=== PATIENT | male | born 1965 | race American Indian/Alaskan Native ===

== ENCOUNTER 2020-02-28 14:00 | Outpatient (CLI) | payer OTHER ==
--- NOTE | 2020-02-28 14:59 | Ultrasound Report ---
LEFT DIGITAL DIAGNOSTIC MAMMOGRAM WITH CAD 02/28/2020 LEFT LIMITED BREAST ULTRASOUND INDICATION: PALPABLE MASS LT BREAST TECHNIQUE: Digital left mammographic imaging was performed. Spot compression views were obtained. Li mited ultrasound was performed. This examination was interpreted with the benefit of Computer-Aided D etection (CAD) analysis. COMPARISON: Baseline. FINDINGS: Breast Density: There are scattered areas of fibroglandular density. MAMMOGRAPHIC FINDINGS: There is mild/moderate localized asymmetric breast tissue in the left subareol ar region the site of the palpable abnormality. There is no evidence of dominant mass, suspicious ruiz cifications or architectural distortion in the left breast. ULTRASOUND FINDINGS: Targeted ultrasound evaluation was performed of the area of interest. There is mild to moderate flame-shaped hypoechoic fibroglandular tissue in the left subareolar region at the area of clinical concern. I do not identify a discrete mass, posterior shadowing or distortion. IMPRESSION: Left gynecomastia. Further evaluation of any palpable abnormality should be based on clin ical findings. Follow up recommendation: Clinical exam BI-RADS Category 2: Benign. A "normal" or negative report should not discourage follow up or biopsy of a clinically significant f inding. A written summary of these findings will be mailed to the patient. The patient will be entered into a mammography reporting system which will generate a reminder letter for the patient's next appointmen t at the appropriate interval. According to the [employer], yearly mammograms are recommended starting at age 40 and continuing as long as a woman is in good health. Breast MRI is recommended for women with an radha roximately 20-25% or greater lifetime risk of breast cancer, including women with a strong family his tory of breast or ovarian cancer and women who have been treated for Hodgkin's disease. Signer Name: Wilson Hernandez MD Signed: 02/28/2020 2:54 PM Workstation Name: [id number]
== END 2020-02-28 14:01 | disposition home or self-care (01) ==
LOC: SPVWC 14:00
PROVIDERS: ATTEND Internal Medicine
DX: N62 Hypertrophy of breast (principal); R92.2 Inconclusive mammogram

== ENCOUNTER 2020-04-26 06:59 | Day surgery (SDC) | payer OTHER ==
[~2020-04-26 06:59] MED LIST: BUPIVACAINE/PF (0.5%) 5 MG/1 ML 30 ML VIAL INFILTRATI ONE; LIDOCAINE (1%) 10 MG/1 ML VIAL 20 ML MDV ONE
[2020-04-26 07:35] VITALS: BP 112/66
[2020-04-26] MEDS ORDERED: BUPIVACAINE/PF (0.5%) 5 MG/1 ML 30 ML VIAL INFILTRATI ONE (08:35)
[2020-04-26] MEDS ORDERED: LIDOCAINE (1%) 10 MG/1 ML VIAL 20 ML MDV INFILTRATI ONE (08:35)
--- NOTE | 2020-04-26 18:09 | XRay Report ---
XR spine lumbosacral 2-3V INDICATION / CLINICAL INFORMATION: BACK PAIN. COMPARISON: None available. FINDINGS: Spot intraoperative images were used for surgical guidance during multiple right-sided lumbar injecti ons. Fluoroscopy time: 53 seconds. Fluoroscopic images: 2. Signer Name: Benito Spencer MD Signed: 04/26/2020 6:05 PM Workstation Name: [id number]
--- NOTE | 2020-04-30 13:05 | Procedure Note ---
Date of procedure: 04/30/20 Pre-op diagnosis: Chronic low back pain Post-op diagnosis: same Procedure: Lumbar facet blocks at [right] L2 through L5 Procedure The patient was brought to the OR and placed prone onto the OR table, the lumbar spine was prepped and draped in the usual sterile manner. A timeout procedure was done to identify the patient and the correct levels of nerve block being performed the patient was awake during the procedure. Using C-arm fluoroscopy the L5 through L2 levels were visualized in both the PA and 45 oblique views 20-gauge spinal needles were inserted again under direct fluoroscopic control after placing the spinal needles and the correct position and Marcaine injection was performed using 1% without epinephrine. The patient tolerated the procedure and no complications Anesthesia: local Surgeon: ALBA PALACIOS Estimated blood loss: minimal Pathology: none Condition: stable Disposition: observation
== END 2020-04-26 09:04 | disposition home or self-care (01) ==
LOC: OR 06:59
PROVIDERS: ATTEND Orthopaedic Surgery
DX: M54.5 Low back pain (principal); G89.29 Other chronic pain; M19.90 Unspecified osteoarthritis, unspecified site; F32.9 Major depressive disorder, single episode, unspecified; K21.9 Gastro-esophageal reflux disease without esophagitis; G43.909 Migraine, unspecified, not intractable, without status migrainosus; E78.00 Pure hypercholesterolemia, unspecified; F17.210 Nicotine dependence, cigarettes, uncomplicated; I10 Essential (primary) hypertension; J45.909 Unspecified asthma, uncomplicated; Z98.890 Other specified postprocedural states; Z85.038 Personal history of other malignant neoplasm of large intestine; Z83.3 Family history of diabetes mellitus; Z82.5 Family history of asthma and other chronic lower respiratory diseases; Z80.8 Family history of malignant neoplasm of other organs or systems; Z98.49 Cataract extraction status, unspecified eye; Z82.49 Family history of ischemic heart disease and other diseases of the circulatory system
CPT/HCPCS: 72100

== ENCOUNTER 2020-06-28 10:45 | Day surgery (SDC) | payer OTHER ==
[~2020-06-28 10:45] MED LIST changes: -BUPIVACAINE/PF (0.5%) 5 MG/1 ML 30 ML VIAL INFILTRATI ONE; +LACTATED RINGERS 1,000 ML IV SCH; -LIDOCAINE (1%) 10 MG/1 ML VIAL 20 ML MDV ONE; +MIDAZOLAM 2 MG/2 ML INJ IV NR
[2020-06-28] MEDS ORDERED: ONDANSETRON 4 MG/2 ML INJ IV PRN (11:32)
[2020-06-28] MEDS ORDERED: fentaNYL 100 MCG/2 ML INJ IV PRN (11:32)
[2020-06-28] MEDS ORDERED: HYDROcodone/ACETAMINOPHEN 5-325 MG TAB PO PRN (11:32)
--- NOTE | 2020-06-28 11:32 | Anesthesia Consultation ---
Anesthesia Consult and Med Hx Date of service: 06/28/20 - Airway Anesthetic Teeth Evaluation: Poor ROM Head & Neck: Adequate Mental/Hyoid Distance: Adequate Mallampati Class: Class II Intubation Access Assessment: Probably Good - Pulmonary Exam CTA: Yes - Cardiac Exam Cardiac Exam: RRR - Pre-Operative Health Status ASA Pre-Surgery Classification: ASA3 Proposed Anesthetic Plan: General - Pulmonary Hx Smoking: Yes (CIGARS- 2 PER DAY) Hx Asthma: Yes (albuterol daily) Hx Respiratory Symptoms: No Hx Sleep Apnea: Yes (not yet started on CPAP) - Cardiovascular System Hx Hypertension: Yes Hx Heart Attack/AMI: No Hx Percutaneous Transluminal Coronary Angioplasty (PTCA): No Hx Valvular Heart Disease: Yes (hx right sided valve regurg; asymptomatic) - Central Nervous System Hx Back Pain: Yes (NECK & BACK PAIN WITH RIGHT LEG PAIN) Hx Psychiatric Problems: Yes (PTSD, SLEEP DISORDER) - Endocrine Hx Renal Disease: No Hx Liver Disease: No Hx Insulin Dependent Diabetes: No Hx Non-Insulin Dependent Diabetes: No Hx Thyroid Disease: No - Other Systems Hx Obesity: No - Additional Comments Anesthesia Medical History Comments: No hx anesthetic complications.
--- NOTE | 2020-06-28 11:33 | Anesthesia Day of Surgery ---
Anesthesia Day of Surgery - Day of Surgery Patient Examined: Yes Patient H&P Reviewed: Yes Patient is NPO: Yes
[2020-06-28] MEDS ORDERED: MIDAZOLAM 2 MG/2 ML INJ ONE (12:55)
[2020-06-28] MEDS ORDERED: propofoL 200 MG/20 ML VIAL IV ONE ×2 (12:56→13:33)
[2020-06-28] MEDS ORDERED: LIDOCAINE MPF (2%) 20 MG/1 ML VIAL 5 ML ONE (12:56)
[2020-06-28] MEDS ORDERED: SUCCINYLCHOLINE CHLORIDE 200 MG/10 ML INJ MDV ONE (12:56)
[2020-06-28] MEDS ORDERED: PHENYLEPHRINE/NS 1,000 MCG/10 ML SYRINGE (OR USE) IV ONE (12:56)
[2020-06-28] MEDS ORDERED: KETAMINE/STERILE WATER 50 MG/ML SYRINGE ONE (12:56)
[2020-06-28] MEDS ORDERED: BUPIVACAINE/PF (0.5%) 5 MG/1 ML 30 ML VIAL INFILTRATI ONE ×2 (13:17→13:48)
[2020-06-28] MEDS ORDERED: methylPREDNISolone ACETATE 40 MG/1 ML INJ ONE (13:30)
[2020-06-28] MEDS ORDERED: methylPREDNISolone ACETATE 40 MG/1 ML INJ INTRA-ARTI ONE (13:49)
[2020-06-28] MEDS ORDERED: LIDOCAINE (1%) 10 MG/1 ML VIAL 20 ML MDV INFILTRATI ONE (13:49)
--- NOTE | 2020-06-28 14:14 | Procedure Note ---
Date of procedure: 06/28/20 Pre-op diagnosis: Chronic low back pain Post-op diagnosis: same Procedure: Lumbar radiofrequency ablation at the [right] L2-5 Procedure The patient was brought to the OR and placed on the Maximino table prone with a pillow place underneath the abdomen to straighten out the lumbar spine next the lumbar spine area was prepped and draped in the usual sterile manner. A timeout procedure done to identify the patient and correct operative site Using C-arm fluoroscopy 4 lumbar pain management introducers placed in the area near the superior articular process junctions to the transverse processes AP and lateral views were used to confirm correct placement of the probes. Next motor nerves were checked to ensure that we were not next to a motor branch following this local anesthetic was used to deaden the area followed by radiofrequency ablation of the medial branch of the dorsal rami of L2 through L5 levels. This step repeated for each level until we had perform all four spots. At the completion of the third and final ablation the patient was awakened and was taken to postanesthesia recovery in a stable condition, there were no complications Anesthesia: MAC Surgeon: ALBA PALACIOS Estimated blood loss: minimal Pathology: none Condition: stable Disposition: PACU
--- NOTE | 2020-06-28 14:37 | XRay Report ---
Fluoroscopic lumbar spine single image FINDINGS: 30 seconds fluoroscopic time was utilized for procedure. L2-L5 marked on exam. Signer Name: Rancho Escalona MD Signed: 06/28/2020 2:32 PM Workstation Name: [id number]
[2020-06-28 15:20] VITALS: BP 130/84
--- NOTE | 2020-06-28 19:25 | Post Anesthesia Evaluation ---
- Post Anesthesia Evaluation Patient Participated: Yes Airway Patent: Yes Stable Respiratory Function: Yes Nausea/Vomiting: No Temp > 96.8F: Yes Pain Manageable: Yes Adequeate Hydration: Yes Anesthesia Complications: No
== END 2020-06-28 15:45 | disposition home or self-care (01) ==
LOC: OR 10:45
PROVIDERS: ATTEND Orthopaedic Surgery
DX: M54.5 Low back pain (principal); G89.29 Other chronic pain; M19.90 Unspecified osteoarthritis, unspecified site; J45.909 Unspecified asthma, uncomplicated; F32.9 Major depressive disorder, single episode, unspecified; G43.909 Migraine, unspecified, not intractable, without status migrainosus; K21.9 Gastro-esophageal reflux disease without esophagitis; F17.210 Nicotine dependence, cigarettes, uncomplicated; E78.00 Pure hypercholesterolemia, unspecified; I10 Essential (primary) hypertension; Z86.19 Personal history of other infectious and parasitic diseases; Z85.030 Personal history of malignant carcinoid tumor of large intestine; Z82.5 Family history of asthma and other chronic lower respiratory diseases; Z83.3 Family history of diabetes mellitus; Z79.899 Other long term (current) drug therapy; Z82.49 Family history of ischemic heart disease and other diseases of the circulatory system; Z98.890 Other specified postprocedural states
CPT/HCPCS: 64635; 64636; 72020; A4649; J0330; J1030; J2250; J2370; J2704; J3010; J3490; J7120; U0003